=== PATIENT | male | born 1970 | race Caucasian/White ===

== ENCOUNTER 2022-03-27 19:42 | Emergency (ER) | payer BC ==
[~2022-03-27] VITALS: Ht 182.9 cm; Wt 92.1 kg
[2022-03-27 20:49] VITALS: BP_SYST 141
--- NOTE | 2022-03-27 23:03 | NUR ---
LUCINA Robert RN PT COMES IN WITH CC OF BILATERAL LEG PAIN FOR THE PAST COUPLE DAYS, PT WAS REFERRED FROM URGENT CARE FOR FOLLOW UP.
[2022-03-27 23:39] LABS: BASOPHILS % (AUTO) 0.5 % (0.0-2.0); EOSINOPHILS # (AUTO) 0.1 K/uL (0.0-0.4); EOSINOPHILS % (AUTO) 1.7 % (0.0-4.0); HEMATOCRIT 42.2 % (36-54); HEMOGLOBIN 14.3 g/dL (14.0-18.0); LYMPHOCYTES # (AUTO) 1.4 K/uL (1.0-5.5); LYMPHOCYTES % (AUTO) 19.1 % (20.5-51.5); MEAN CORPUSCULAR HEMOGLOBIN 29 pg (27-31); MEAN CORPUSCULAR HGB CONC 34 % (32-36); MEAN CORPUSCULAR VOLUME 86 fL (79.0-98.0); MONOCYTES # (AUTO) 0.7 K/uL (0.0-1.0); MONOCYTES % (AUTO) 9.1 % (1.7-9.3); NEUTROPHILS # (AUTO) 5.2 K/uL (1.8-7.7); NEUTROPHILS % (AUTO) 69.6 % (40.0-70.0); PLATELET COUNT (AUTO) 152 K/uL (130-430); RED BLOOD CELL COUNT(AUTO) 4.89 MIL/uL (4.2-6.2); RED CELL DISTRIBUTION WIDTH 13.5 % (9.0-15.0); WHITE BLOOD COUNT (AUTO) 7.5 K/uL (4.8-10.8)
--- NOTE | 2022-03-27 23:40 | NUR ---
PT OFF UNIT TO U/S IN STABLE CONDITION.
[2022-03-27 23:55] LABS: CALCIUM 8.7 mg/dL (8.4-11.0); CREATININE 1.62 mg/dL (0.55-1.30); POTASSIUM 4.1 mmol/L (3.5-5.1)
[2022-03-28 00:18] LABS: ALBUMIN 4.1 g/dL (3.4-4.8)
[2022-03-28] MEDS ORDERED: ENOXAPARIN SODIUM 80 MG/0.8 ML SYRINGE SUBCUT ONE (01:45)
[2022-03-28] MEDS ORDERED: APIX5TAB PO (02:17)
[2022-03-28 02:28] VITALS: BP_SYST 130
== END 2022-03-28 02:28 | disposition home or self-care (01) ==
LOC: SED 19:42
DX: I82.401 Acute embolism and thrombosis of unspecified deep veins of right lower extremity (principal); R22.41 Localized swelling, mass and lump, right lower limb; Z79.899 Other long term (current) drug therapy; Z20.822 Contact with and (suspected) exposure to COVID-19
CPT/HCPCS: 99284; 73700; 93971; 87426; 80053; 82550; 85025; 87040; 36415; 76376 ×2; 83605; 96372; J1650